=== PATIENT | male | born 1950 | race Caucasian/White ===

== ENCOUNTER 2022-05-30 05:28 | Inpatient (IN) ==
--- NOTE | 2022-05-04 09:55 | PAT Medication Instructions ---
Medication Instructions Date of Service May 04, 2022 Home Medications aspirin 81 mg capsule 81 mg PO QAM atenolol 100 mg tablet 100 mg PO QAM chlorthalidone 25 mg tablet 25 mg PO QAM clopidogrel 75 mg tablet 75 mg PO QAM dorzolamide 2 % eye drops 1 drp OPHTHALMIC (EYE) TID doxazosin 2 mg tablet 4 mg PO HS dulaglutide 1.5 mg/0.5 mL subcutaneous pen injector (Trulicity) 1.5 mg SUBCUT WK gabapentin 100 mg tablet 100 mg PO TID glipizide 5 mg tablet 10 mg PO BID isosorbide mononitrate 120 mg tablet,extended release 24 hr 120 mg PO QAM latanoprost 0.005 % eye drops 1 drp OPHTHALMIC (EYE) HS lisinopril 20 mg tablet 20 mg PO QAM meloxicam 15 mg tablet 15 mg PO QAM metformin 1,000 mg tablet 1,000 mg PO BID ktgnaups-qnq-dakcy acid 300 mcg-lycopene 600 mcg-lutein 300 mcg tablet (Centrum Silver Men) 1 tab PO QAM omega-3 fatty acids-vitamin E 1,000 mg capsule 2 cap PO QAM pantoprazole 40 mg tablet,delayed release 40 mg PO QAM potassium chloride 20 mEq tablet,extended release 40 meq PO BID rosuvastatin 20 mg tablet 20 mg PO QAM secukinumab 150 mg/mL subcutaneous pen injector (Cosentyx Pen) 150 mg SUBCUT MONTHLY tamsulosin 0.4 mg capsule 0.4 mg PO QAM trazodone 150 mg tablet,extended release 24 hr 150 mg PO HS Continue as directed dulaglutide 1.5 mg/0.5 mL subcutaneous pen injector (Trulicity) 1.5 mg SUBCUT WK ASK your surgeon for instructions meloxicam 15 mg tablet 15 mg PO QAM ASK your prescriber and surgeon aspirin 81 mg capsule 81 mg PO QAM clopidogrel 75 mg tablet 75 mg PO QAM secukinumab 150 mg/mL subcutaneous pen injector (Cosentyx Pen) 150 mg SUBCUT MONTHLY STOP taking 2 weeks before surgery omega-3 fatty acids-vitamin E 1,000 mg capsule 2 cap PO QAM DO NOT take the morning of surgery chlorthalidone 25 mg tablet 25 mg PO QAM glipizide 5 mg tablet 10 mg PO BID lisinopril 20 mg tablet 20 mg PO QAM metformin 1,000 mg tablet 1,000 mg PO BID xaahpyuc-few-qvezb acid 300 mcg-lycopene 600 mcg-lutein 300 mcg tablet (Centrum Silver Men) 1 tab PO QAM potassium chloride 20 mEq tablet,extended release 40 meq PO BID Take morning of surgery With a small sip of water, OTHERWISE NOTHING TO EAT OR DRINK AFTER MIDNIGHT: atenolol 100 mg tablet 100 mg PO QAM dorzolamide 2 % eye drops 1 drp OPHTHALMIC (EYE) TID gabapentin 100 mg tablet 100 mg PO TID isosorbide mononitrate 120 mg tablet,extended release 24 hr 120 mg PO QAM pantoprazole 40 mg tablet,delayed release 40 mg PO QAM rosuvastatin 20 mg tablet 20 mg PO QAM tamsulosin 0.4 mg capsule 0.4 mg PO QAM Take evening before surgery dorzolamide 2 % eye drops 1 drp OPHTHALMIC (EYE) TID doxazosin 2 mg tablet 4 mg PO HS gabapentin 100 mg tablet 100 mg PO TID glipizide 5 mg tablet 10 mg PO BID latanoprost 0.005 % eye drops 1 drp OPHTHALMIC (EYE) HS metformin 1,000 mg tablet 1,000 mg PO BID potassium chloride 20 mEq tablet,extended release 40 meq PO BID trazodone 150 mg tablet,extended release 24 hr 150 mg PO HS Other Notes If you have any questions please call us at [phone] or [phone] or [phone] or [phone]
--- NOTE | 2022-05-08 13:45 | Anesthesiology Consultation ---
Date of Service May 08, 2022 Assessment & Plan (1) Encounter for pre-operative examination: - check BSG am DOS. - cardiology clearance 05/02/22: "..low to moderate risk..." Unable to obtain most recent cardio note which is unsigned and office advised provider is com pleting procedures today. - PCP f/u 03/28/22: "...slurred speech and headache, CT head showed right internal carotid stenosis. MRI done yesterday showed acute/subacute ischemia left thalamus...most all symptoms resolved...severe right internal carotid stenosis..." - Case discussed with Dr. Salter who advised pt is acceptable risk to proceed including regarding pre-op CXR. - COVID screening: Per assessment on 05/08/2022: Travel screen negative, no known COVID-19 positive contacts or current COVID-19 related symptoms in past 2 weeks. Pt vaccinated. pre-op COVID test obtained today at [facility] appt. Chart Review Chart Review: Acceptable Risk for Surgery and Patient seen in Pre Admission Testing Teaching & Discussion Pre-Anesthesia Teaching/Discussion Notes: Instructed NPO after midnight before surgery, except medications with 15 cc of water. Medication instructions prov ided according to the [facility] guidelines. History Surgery Operation Date: 05/10/22 08:50 Proposed Procedures p Right Carotid Endarterectomy - Albaro Collins MD Height/Weight Height: 5 ft 8 in Weight: 136.3 kg Allergies Allergy/AdvReac Type Severity Reaction Status Date / Time No Known Allergies Allergy Verified 05/03/22 13:12 Medications Home Medications Medication Instructions Recorded Confirmed Last Taken aspirin 81 mg capsule 81 mg PO QAM 05/03/22 05/03/22 Unknown atenolol 100 mg tablet 100 mg PO QAM 05/03/22 05/03/22 Unknown chlorthalidone 25 mg tablet 25 mg PO QAM 05/03/22 05/03/22 Unknown clopidogrel 75 mg tablet 75 mg PO QAM 05/03/22 05/03/22 Unknown dorzolamide 2 % eye drops 1 drp OPHTHALMIC (EYE) TID 05/03/22 05/03/22 Unknown doxazosin 2 mg tablet 4 mg PO HS 05/03/22 05/03/22 Unknown dulaglutide 1.5 mg/0.5 mL 1.5 mg SUBCUT WK 05/03/22 05/03/22 Unknown subcutaneous pen injector (Trulicity) gabapentin 100 mg tablet 100 mg PO TID 05/03/22 05/03/22 Unknown glipizide 5 mg tablet 10 mg PO BID 05/03/22 05/03/22 Unknown isosorbide mononitrate 120 mg 120 mg PO QAM 05/03/22 05/03/22 Unknown tablet,extended release 24 hr latanoprost 0.005 % eye drops 1 drp OPHTHALMIC (EYE) 05/03/22 05/03/22 Unknown lisinopril 20 mg tablet 20 mg PO QAM 05/03/22 05/03/22 Unknown meloxicam 15 mg tablet 15 mg PO QAM 05/03/22 05/03/22 Unknown metformin 1,000 mg tablet 1,000 mg PO BID 05/03/22 05/03/22 Unknown lpygsdhn-bnh-wugdv acid 300 1 tab PO QAM 05/03/22 05/03/22 Unknown mcg-lycopene 600 mcg-lutein 300 mcg tablet (Centrum Silver Men) omega-3 fatty acids-vitamin E 2 cap PO QAM 05/03/22 05/03/22 Unknown 1,000 mg capsule pantoprazole 40 mg tablet,delayed 40 mg PO QAM 05/03/22 05/03/22 Unknown release potassium chloride 20 mEq 40 meq PO BID 05/03/22 05/03/22 Unknown tablet,extended release rosuvastatin 20 mg tablet 20 mg PO QAM 05/03/22 05/03/22 Unknown secukinumab 150 mg/mL subcutaneous 150 mg SUBCUT MONTHLY 05/03/22 05/03/22 Unknown pen injector (Cosentyx Pen) tamsulosin 0.4 mg capsule 0.4 mg PO QAM 05/03/22 05/03/22 Unknown trazodone 150 mg tablet,extended 150 mg PO HS 05/03/22 05/03/22 Unknown release 24 hr Past Medical History Medical History (Updated 05/08/22 @ 14:24 by Lindsay Montoya PA-C) CAD (coronary artery disease) s/p ALIYAH stent to proximal Cx 06/2019, per cath report also s/p stenting to LAD Carotid artery disease Diabetes mellitus, type 2 IDDM History of stroke approx 3 weeks ago - went to [facility] - stayed overnight - followed up with Dr. Collins Hyperlipidemia Hypertension controlled, stable per pt Imbalance ongoing x 1 yr per pt Psoriasis Sleep apnea cpap-compliant Patient denies h/o seizures, heart attack, heart failure, blood clots or blood transfusions. Exercise / Class Metabolic Activity III < 4 Walking/Shop/Light housework (denies CP or SOB with usual activities, ambulates with cane) Past Family History Family History Other No pertinent family history Past Surgical History Surgical History History of appendectomy History of arthroscopy of right shoulder History of colonoscopy History of lumbar laminectomy for spinal cord decompression Hx of cardiac cath 07/09/19: PH [facility] - widely patent LAD stent with otherwise mild disease, PCI/stenting ALIYAH to proximal Cx, mild RCA disease - follows Dr. Jerez Hx of heart artery stent 07/09/19: PH [place] - widely patent LAD stent with otherwise mild disease, PCI/stenting ALIYAH to proximal Cx, mild RCA disease - follows Dr. Jerez Hx of spinal fusion Hx of tonsillectomy Hx of wisdom tooth extraction Past Anesthesia History No Hx of Anesthesia Complications and No Family Hx of Anesthesia Complications History of PONV No Hx of PONV and No Hx of Motion Sickness Social History Smoking Status: Former smoker Do You Dip or Chew Tobacco: No Smoking End Date: quit more than 30 years ago Hx Alcohol Use: No Hx Substance Use: No substance use type: does not use Review of Systems Occasional cough with mucus/phlegm ongoing x 1 yr with seasonal allergies per pt. Patient denies chest pain, shortness of breath, dyspnea on exertion, fever, chills, cough, wheezing, or palpitations. Physical Exam Vital Signs Vitals BP 132/68 P 70 TEMP 98.9 SP02 97% on RA RESP 17 Physical TMD 3.5 finger breaths Mallampati Score 3 Dentition: intact, several missing teeth; denies chipped or loose teeth, implants or bridges, caps/crowns Lungs: normal respiratory effort. Clear throughout to auscultation, no adventitious breath sounds Cardiac: regular rate and rhythm, no murmurs noted Lab Results Anesthesia Preop Results Results Anesthesia Widget: WBC 4.72 K/uL (4.8-10.8) L 05/08/22 Hgb 13.5 g/dL (14.0-18.0) L 05/08/22 Hct 41.4 % (42-52) L 05/08/22 Plt 116 K/uL (130-400) L 05/08/22 Na 141 mmol/L (136-145) 05/08/22 K 4.1 mmol/L (3.5-5.1) 05/08/22 Cl 105 mmol/L (98-107) 05/08/22 CO2 29 mmol/L (21-32) 05/08/22 BUN 24 mg/dl (6-23) H 05/08/22 Creat 1.30 mg/dl (0.6-1.4) 05/08/22 Glucose Level 202 mg/dl (70-99(Fasting)) H 05/08/22 PT 10.6 Seconds (9.0-12.0) 05/08/22 INR 1.0 (0.9-1.1) 05/08/22 HA1c 6.5 % (4.5-5.6) H 05/08/22 Blood Type O Positive 05/08/22 Antibody Screen NEGATIVE 05/08/22 Testing Electrocardiogram Date: 05/08/22 Sinus rhythm with 1st degree AV block, rate 71 bpm Poor R wave progression, consider anterior OH vs lead placement vs LVH Chest X-Ray Date: 05/08/22 Cardiac silhouette is enlarged. There is no pneumothorax, or overt pulmonary edema. Trace pleural effusions with mild bibasilar densities. Degenerative changes of the shoulders and spine. IMPRESSION: 1. Cardiomegaly without overt pulmonary edema. 2. Trace pleural effusions with mild bibasilar opacities, likely atelectatic. Echocardiogram Date: 03/27/22 EF 60% LA moderately dilated RV mildly dilated R cusp of aortic valve moderately thickened, mildly calcified and restricted No significant valvular dysfunction Stress Test Date: 03/06/18 Pharmacologic MPHR not listed Negative for myocardial ischemia on ECG, nuclear images not available Cardiac Catheterization Date: 07/09/19 Left main: angiographically normal LAD: mid disease 40% proximal to previously placed stent, mid stent is widely patent. Otherwise mild luminal irregularities Cx: proximal 80% disease s/p PCI and stenting RCA: 30% proximal disease, mild luminal irregularities Other Testing MRI brain 03/27/22 Focal acute/subacute ischemic change is present in the left thalamus. Neck CTA 03/26/22 Severe narrowing R ICA, soft and calcified plaque Less than 50% stenosis L ICA
--- NOTE | 2022-05-29 15:53 | History & Physical Report ---
Date of Service May 29, 2022 History of Present Illness Primary Care Provider: Margaret Mahoney MD Name: TRINIDAD SHERIFF Patient Number: [id number] : 1950 Date of Service: 05/01/2022 Chief Complaint: _New patient consultation for carotid stenosis HPI: _Mr. Sheriff is an elderly male who presents to Dr. Collins's vascular surgery clinic today as a new patient visit for carotid stenosis. Patient recently was admitted to [facility] for a left hemispheric CVA on 03/26/2022. During that hospital stay he had symptoms of confusion, slurred speech, and possibly some balance problems, which resolved within about 24 ho urs. He has not have recurrence of symptoms nor has he had any similar symptoms previous to this. Imaging demonstrated a left thalamic CVA. CTA of the neck demonstrated less than 50% stenosis of his left ICA, and 70 to 99% stenosis in his right. Patient denies any history of myocardial infarction, but does state that he had 2 cardiac catheterizations with stent placement about 6 years ago. He follows with Dr. Sreekanth Jerez. He was started on Plavix during that hospital stay as well. Patient does use a cane for ambulation. Patient denies other complaints at this time including headache, fever, chills, chest pain, shortness of breath, abdominal pain, nausea, vomiting, rest pain, claudication, nonhealing wounds or ulcers, other concerns. Review of systems: Total of 14 systems were reviewed and are negative aside from what is related in his HPI Imaging: Patient underwent a CTA evaluation at [facility], and brought a disc to the office for Dr. Collins's review. This demonstrates 95% stenosis of his right ICA and less than 50% stenosis in the left. Current Home Meds: (Last Updated 05/01 13:31) aspirin (aspirin 81 mg oral tablet) 81 mg PO Daily atenolol (atenolol 100 mg oral tablet) 100 mg PO bid betamethasone topical (betamethasone dipropionate 0.05% topical ointment) 1 appl topical bid to groin. chlorthalidone (chlorthalidone 25 mg oral tablet) 25 mg PO Daily clopidogrel (clopidogrel 75 mg oral tablet) 75 mg PO Daily cyanocobalamin (Vitamin B12) dorzolamide-timolol ophthalmic (dorzolamide-timolol 2.23%-0.68% ophthalmic solution) 1 drop both eyes bid doxazosin (doxazosin 2 mg oral tablet) 2 mg PO Daily dulaglutide (Trulicity Pen 1.5 mg/0.5 mL subcutaneous solution) folic acid gabapentin (gabapentin 100 mg oral capsule) 100 mg PO tid glipiZIDE (glipiZIDE 5 mg oral tablet) 10 mg PO bid isosorbide mononitrate (isosorbide mononitrate 120 mg oral tablet, extended release) 120 mg PO qAM IMDUR (isosorbide mononitrate) is a SUSTAINED RELEASE tablet typically dosed daily. Do not confuse with ISORDIL (isosorbide dinitrate) commonly dosed three times daily. Gino Krause 05/01 13:24 latanoprost ophthalmic (latanoprost 0.005% ophthalmic solution) 1 drop left eye qhs Store intact bottles under refrigeration. Once opened, the container may be stored at room temperature for 6 weeks. Gino Krause 05/01 13:24 lisinopril (lisinopril 20 mg oral tablet) 20 mg PO Daily meloxicam (meloxicam 15 mg oral tablet) 15 mg PO Daily metFORMIN (metFORMIN 1000 mg oral tablet) 1,000 mg PO bid multivitamin (One-A-Day Essentials) 1 tab PO Daily nitroglycerin (nitroglycerin 0.4 mg sublingual tablet) omega-3 polyunsaturated fatty acids (Fish Oil oral capsule) pantoprazole (pantoprazole 40 mg oral delayed release tablet) 40 mg PO Daily potassium chloride (potassium chloride 20 mEq oral tablet, extended release) 2 tabs po bid rosuvastatin (rosuvastatin 20 mg oral tablet) 20 mg PO qhs secukinumab (Cosentyx) 300 mg subQ [id number] traZODone (traZODone 150 mg oral tablet) Allergies and Sensitivities: No Known Medication Allergies Past Medical History: Problems: Carotid stenosis Hypertension Diabetes Skin lesion Coronary artery disease Hyperlipidemia Diabetic neuropathy Obstructive sleep apnea GERD Psoriasis Surgical history: Positive for tonsillectomy, appendectomy cardiac catheterization with coronary artery stent placement x2 Family history: Positive for diabetes and hypertension Social history: Patient is and lives with his . He is a prior smoker having smoked 1 pack/week for about 2 years and quit in 1972. He denies any significant alcohol use. He denies any illicit drug use. OBJECTIVE Vitals: Last Updated 05/01/22 13:36 Date Temp BP Location Pulse RR SpO2 Pain 05/01/22 0 05/01/22 140/64 Right Arm 05/01/22 142/64 Left Arm 68 94 Vital Signs are the last 3 documented. No Orthostatic Data Available Height and Weight: Last Updated 05/01/22 13:33 Date BMI Wt(kg) Wt(lb) Method Ht(cm) (ft-in) Method 05/01/22 134.1 295 Standing Scale Heights and Weights are the last 3 documented. Physical Exam Constitutional: In general patient is morbidly obese but otherwise healthy well- nourished well-developed elderly male no distress. He is alert and oriented without any focal neurological deficits. His head is normocephalic and atraumatic. His carotids do demonstrate bruits. His heart is regular, his lungs are decreased but clear throughout. His abdomen is soft and nontender with normoactive bowel sounds in all 4 quadrants. I am unable to appreciate any pulsatile mass. Brachial and radial pulses are +3. Femoral pulses are +3. Lower extremity distal pulses are +2. He has brisk capillary refill and no sign of distal ischemia. He does have +2 edema of the lower extremities. ASSESSMENT: _ PLAN: _ 1 ) _severe right ICA stenosis Patient appears to have over 95% stenosis of his right ICA by CTA. This is asymptomatic at this time, however, due to the severity of the stenosis we recommend that he undergo a right carotid endarterectomy procedure. The procedure risks benefits and alternatives were discussed with the patient and his by Dr. Collins. Patient expresses understanding and agreement to proceed. Patient is advised to call any other questions or concerns. This will be scheduled in the next few weeks at the patient's convenience. We will request cardiac clearance from Dr. Jerez. Thank you for letting us participate in the care of this patient. Signature Line Electronic Signature on File CC: Sreekanth Jerez MD [address] [facility] [address] * CC: Margaret Mahoney MD [place] [id number] [facility], [address] [place] [address] * Electronically Reviewed/Signed by: Keshia Lopez PA-C Author Signature Dt/Tm:05/01/2022 04:31 PM [facility] [address] [place], [place]. [address] Electronically Reviewed/Signed by: Albaro Collins MD Cosigner Signature Dt/Tm: 05/04/2022 08:43 AM Clam Shucker [facility] [address], [address] [place] [address] LM Result Type: HVI Outpt Note Date of Service: May 01, 2022 16:19 EDT Authorization Status: Final Author or Import Date: MALAIKA Lopez, Keshia on May 01, 2022 16:31 EDT Verified By: MD Dennis, Albaro Oscar on May 04, 2022 08:43 EDT Encounter info: [id number], [facility], Clinic, 05/01/2022 - 05/01/2022 Allergies Allergy/AdvReac Type Severity Reaction Status Date / Time No Known Allergies Allergy Verified 05/03/22 13:12 Home Medications Medication Instructions Recorded Confirmed Type aspirin 81 mg capsule 81 mg PO QAM 05/03/22 05/03/22 History atenolol 100 mg tablet 100 mg PO QAM 05/03/22 05/03/22 History chlorthalidone 25 mg tablet 25 mg PO QAM 05/03/22 05/03/22 History clopidogrel 75 mg tablet 75 mg PO QAM 05/03/22 05/03/22 History dorzolamide 2 % eye drops 1 drp ophthalmic (eye) TID 05/03/22 05/03/22 History doxazosin 2 mg tablet 4 mg PO HS 05/03/22 05/03/22 History dulaglutide 1.5 mg/0.5 mL 1.5 mg subcut WK 05/03/22 05/03/22 History subcutaneous pen injector (Trulicity) gabapentin 100 mg tablet 100 mg PO TID 05/03/22 05/03/22 History glipizide 5 mg tablet 10 mg PO BID 05/03/22 05/03/22 History isosorbide mononitrate 120 mg 120 mg PO QAM 05/03/22 05/03/22 History tablet,extended release 24 hr latanoprost 0.005 % eye drops 1 drp ophthalmic (eye) HS 05/03/22 05/03/22 History lisinopril 20 mg tablet 20 mg PO QAM 05/03/22 05/03/22 History meloxicam 15 mg tablet 15 mg PO QAM 05/03/22 05/03/22 History metformin 1,000 mg tablet 1,000 mg PO BID 05/03/22 05/03/22 History rawvawfp-ovm-mdvyt acid 300 1 tab PO QAM 05/03/22 05/03/22 History mcg-lycopene 600 mcg-lutein 300 mcg tablet (Centrum Silver Men) omega-3 fatty acids-vitamin E 2 cap PO QAM 05/03/22 05/03/22 History 1,000 mg capsule pantoprazole 40 mg tablet,delayed 40 mg PO QAM 05/03/22 05/03/22 History release potassium chloride 20 mEq 40 meq PO BID 05/03/22 05/03/22 History tablet,extended release rosuvastatin 20 mg tablet 20 mg PO QAM 05/03/22 05/03/22 History secukinumab 150 mg/mL subcutaneous 150 mg subcut MONTHLY 05/03/22 05/03/22 History pen injector (Cosentyx Pen) tamsulosin 0.4 mg capsule 0.4 mg PO QAM 05/03/22 05/03/22 History trazodone 150 mg tablet,extended 150 mg PO HS 05/03/22 05/03/22 History release 24 hr Past Med/Surg History Medical History (Updated 05/08/22 @ 14:24 by Lindsay Montoya PA-C) CAD (coronary artery disease) s/p ALIYAH stent to proximal Cx 06/2019, per cath report also s/p stenting to LAD Carotid artery disease Diabetes mellitus, type 2 IDDM History of stroke approx 3 weeks ago - went to [place] - stayed overnight - followed up with Dr. Collins Hyperlipidemia Hypertension controlled, stable per pt Imbalance ongoing x 1 yr per pt Psoriasis Sleep apnea cpap-compliant Surgical History History of appendectomy History of arthroscopy of right shoulder History of colonoscopy History of lumbar laminectomy for spinal cord decompression Hx of cardiac cath 07/09/19: [place] - widely patent LAD stent with otherwise mild disease, PCI/stenting ALIYAH to proximal Cx, mild RCA disease - follows Dr. Jerez Hx of heart artery stent 07/09/19: PH [place] - widely patent LAD stent with otherwise mild disease, PCI/stenting ALIYAH to proximal Cx, mild RCA disease - follows Dr. Jerez Hx of spinal fusion Hx of tonsillectomy Hx of wisdom tooth extraction Family History Other No pertinent family history Social History Smoking Status: Former smoker Second Hand Exposure: No; Hx Alcohol Use: No Hx Substance Use: No Preferred Language: Japanese Communication Ability: Effective [employer] Required: No Beliefs That Will Affect Care: None Current Living Situation: Spouse and Family Current Living Situation Comment: and son Feels Safe at Home: Yes Assistive Devices: Cane
[~2022-05-30 05:28] MED LIST: CEFAZOLIN 1,000 MG/7.5 ML SYR IV SCH; SODIUM CHLORIDE 0.9% 1000ML 1,000 ML IV SCH
[2022-05-30] MEDS ORDERED: SODIUM CHLORIDE 0.9% 1000ML IV SCH (06:00)
[2022-05-30 06:42] LABS: Calcium 9.2 mg/dl (8.5-10.1); Creatinine Clr Calc Pharmacy 88.5 ml/min; Est GFR (African American) 82.6 ml/min; Est GFR (Non-African American) 71.3 ml/min; Potassium 4.2 mmol/L (3.5-5.1)
[2022-05-30] MEDS ORDERED: ROCURONIUM BROMIDE 10 MG/ML 5 ML VIAL IV ONE ×5 (06:49→11:25)
[2022-05-30] MEDS ORDERED: PROPOFOL IV EMULSION 10 MG/ML 20 ML VIAL IV ONE (06:49)
[2022-05-30] MEDS ORDERED: LIDOCAINE 2% MPF LOCAL 5 ML VIAL INFIL ONE (06:49)
[2022-05-30] MEDS ORDERED: ONDANSETRON INJ 2 MG/ML 2 ML VIAL ONE (06:49)
[2022-05-30] MEDS ORDERED: DEXAMETHASONE SOD INJ 4 MG/ML VIAL ONE (06:49)
[2022-05-30] MEDS ORDERED: fentaNYL citrate 100 MCG/2 ML VIAL ONE ×2 (06:49)
[2022-05-30] MEDS ORDERED: MIDAZOLAM HCL 1 MG/ML 2ML VIAL ONE (06:49)
[2022-05-30] MEDS ORDERED: ATROPINE SULFATE 0.1 MG/ML 10ML SYR IV PRN (06:59)
[2022-05-30] MEDS ORDERED: fentaNYL citrate 100 MCG/2 ML VIAL IV PRN (06:59)
[2022-05-30] MEDS ORDERED: ONDANSETRON INJ 2 MG/ML 2 ML VIAL IV PRN (06:59)
[2022-05-30] MEDS ORDERED: ePHEDrine sulfate 50 MG/ML AMP IV PRN (06:59)
[2022-05-30] MEDS ORDERED: SUGAMMADEX SODIUM 200 MG/2 ML VIAL IV ONE (07:17)
[2022-05-30] MEDS ORDERED: HEPARIN (PORCINE) 1000 UNIT/ML 10 ML (CATH LAB USE ONLY) ONE (07:18)
[2022-05-30] MEDS ORDERED: LIDOCAINE 1% LOCAL 20 ML VIAL ONE (07:19)
[2022-05-30] MEDS ORDERED: THROMBIN FOR SOLN 20000 UNIT KIT ONE (07:19)
[2022-05-30] MEDS ORDERED: ceFAZolin 330 MG/ML 1 GM VIAL ONE (07:19)
[2022-05-30] MEDS ORDERED: GELATIN SPONGE SZ 100 ONE (07:19)
[2022-05-30] MEDS ORDERED: BUPIVACAINE 0.5 % 5 MG/1 ML MPF 30ML VIAL ONE (07:20)
[2022-05-30] MEDS ORDERED: EPINEPHrine INJ 1 MG/ML AMP ONE (07:20)
[2022-05-30] MEDS ORDERED: NITROGLYCERIN 5 MG/ML 10 ML VIAL ONE (07:33)
[2022-05-30] MEDS ORDERED: HEPARIN SOD (PORCINE) 1000 UNIT/ML ONE (07:33)
--- NOTE | 2022-05-30 08:17 | History & Physical Bridge Note ---
Date of Service May 30, 2022 History & Physical Bridge Note I have examined the patient, reviewed the History & Physical and in the interval since the performance of the History & Physical I have noted the following changes of clinical significance: no changes noted
--- NOTE | 2022-05-30 11:26 | Operative Report ---
Post Operative Report Pre & Post Diagnosis Operation Date: 05/10/22 07:30 <No data on this case meets the specified criteria> Operation Date: 05/30/22 08:00 Pre-Op Diagnosis: Right internal carotid artery stenosis with CVA Post-Op Diagnosis: Right carotid artery stenosis and CVA I identified the patient and participated in the time-out.: Yes Procedure Operation Date: 05/10/22 07:30 <No data on this case meets the specified criteria> Operation Date: 05/30/22 08:00 Actual Procedures p Right Carotid Endarterectomy with bovine patch(Right) - Albaro Collins MD Surgeon Albaro Collins MD Terrazzo Mechanic Bobby,PAC Estimated Blood Loss 80 Findings Consistent with Post-Op Diagnosis Specimens plaque right carotid Anesthesia Type General Complications none Disposition Accompanied Patient To Recovery: No Disposition: Recovery Room Indications This is a 71-year-old gentleman who had a CVA. He was found to have a significant stenosis of his right internal carotid artery with ulceration. Carotid endarterectomy was recommended. I have discussed the risks options and benefits of the procedure with the patient. The patient understands the risks options and benefits and agrees to the procedure. Description of Procedure The patient was taken to the operating room and placed in supine position. After general anesthesia was accomplished the right side of the neck was prepped and draped in a sterile manner. The patient was identified and a timeout performed. A longitudinal neck incision was then made coursing along the medial border of the sternocleidomastoid muscle. The incision was taken down through the platysmal layer. The facial vein was identified, ligated, and divided. The common carotid artery was then seen. It was dissected free down to the omohyoid muscle. The dissection was carried upward until the external carotid artery and superior thyroid artery was seen. The superior thyroid artery was slung with a 2-0 silk suture. The external carotid was slung with a red rubber vessel loop. Next the dissection was carried up along the internal carotid artery. This was carried upward to beyond the area of narrowing. The hypoglossal nerve was seen and preserved. The ansa actually coursed over the top of the common carotid artery from lateral to medial and was preserved during the case. The patient was heparinized. After adequate heparinization was accomplished, the internal, external, and common carotid arteries were clamped. A longitudinal arteriotomy was started on the common carotid artery and extended upward along the internal carotid artery to a point beyond the area of narrowing. There was calcified plaque of the internal carotid artery origin causing approximately 80% narrowing with a large posterior ulceration and subacute hemorrhagic plaque.. A Sundt shunt was then placed in the internal, followed by the common carotid artery and held in place with Jayce clamps. There was good back bleeding seen from the internal carotid artery. The endarterectomy was then started in the appropriate plane on the common carotid artery. This was carried upward and the external carotid was everted and endarterectomized. The endarterectomy was then carried up along the internal carotid artery till a nice feathering breakoff point was accomplished beyond the end of the plaque. There were 2 tacking stitches placed at the distal breakoff point. The endarterectomy was then carried down further on the common carotid artery. At end of the arteriotomy, the plaque was then transected. Under loop magnification, all loose debris and flaps werer removed. There is no distal flap seen at the end of the endarterectomy site. The arteriotomy then closed using a bovine patch and a running 6-0 Prolene suture. This was done in the usual vascular fashion. Prior to completing the closure, the Sundt shunt was removed and the internal and common carotid arteries were reclamped. Backbleeding and forward bleeding was allowed to occur. The flow surface was irrigated with heparinized saline. The final few sutures were then placed and securely tied. Clamps were then removed off the external and common carotid arteries. The clamp was then removed the internal carotid artery. Good distal flow was seen. Adequate hemostasis was seen of the patch. The wound was inspected and adequate hemostasis was obtained. The wound was irrigated with antibiotic solution. It was then closed with a running 3-0 Vicryl suture for the platysmal layer and a 4-0 subcuticular Vicryl suture for the skin edges. Dermabond was used for dressing. The patient left the operation room in satisfactory condition and tolerated the procedure well. All needle and sponge counts were correct at the end of the procedure. Keshia Lopez Pac assisted due to lack of resident availability and was necessary for prepping, draping, retraction, wound closure defects, subQ and skin closure and was necessary for the case. I attest to the content of the Intraoperative Record and any orders documented therein. Any exceptions are noted below.
[2022-05-30] MEDS ORDERED: ESMOLOL HCL INJ 10 MG/ML 10ML VIAL IV ONE (12:11)
--- NOTE | 2022-05-30 12:39 | Anesthesiology Progress Note ---
Date of Service May 30, 2022 Anesthesia Post Procedure Vital Signs Vital Signs: Temp Pulse Pulse Resp BP BP Pulse Ox 05/30/22 12:25 97.2 F L 88 18 161/64 H 99 05/30/22 12:15 87 16 166/64 H 99 05/30/22 12:05 87 18 166/63 H 95 05/30/22 11:57 97.0 F L 92 H 18 153/80 H 95 05/30/22 06:20 98.4 F 71 20 182/79 H 96 O2 Del Method O2 Flow Rate 05/30/22 12:25 Oxymask 5 05/30/22 12:15 Oxymask 5 05/30/22 12:05 Oxymask 5 05/30/22 11:57 Oxymask 5 05/30/22 06:20 Room Air Transfer of Care Handoff Completed per policy Notes Mental Status: alert / awake / arousable and participated in evaluation Patient Amnestic to Procedure: Yes Nausea / Vomiting: adequately controlled Pain: adequately controlled Airway Patency, RR, SpO2: stable & adequate BP & HR: stable & adequate Hydration State: stable & adequate Anesthetic Complications: no major complications apparent and Pt Satisfied with anesthetic care
[2022-05-30] MEDS ORDERED: MoRPHine SULFATE 4 MG/ML 1 ML CARP\\VIAL IV PRN (15:31)
[2022-05-30] MEDS ORDERED: oxyCODONE/ACETAMINOPHEN 5mg/325mg TAB PO PRN (15:31)
[2022-05-30] MEDS ORDERED: LACTATED RINGER'S 1,000 ML IV SCH (15:31)
[2022-05-30] MEDS ORDERED: SECUKINUMAB 150 MG/ML SQ SCH (15:31)
--- NOTE | 2022-05-30 17:02 | Critical Care Consultation ---
Date of Consultation May 30, 2022 Assessment & Plan (1) Status post carotid endarterectomy: (2) Hypertension: (3) History of coronary artery disease: Plan Continue usual post carotid endarterectomy ICU care. Home blood pressure medications have been ordered by the vascular surgeon. Defer blood pressure goals and parameters to the vascular surgery team. Defer pain control to the vascular surgery team. Patient's airway appears to be intact. ICU provider team is available should the need arise. Please call with questions. ICU provider team will continue to monitor the patient in the ICU until the patient is either downgraded or discharged. Discussed with bedside nurse. History of Present Illness Reason for Consultation: Post carotid endarterectomy ICU monitoring Attending Physician: Albaro Collins MD History of Present Illness Patient with a history of left CVA 03/26/2022 admitted to an outside hospital. Imaging demonstrated a left thalamic CVA. CTA of the neck demonstrated less than 50% stenosis of the left ICA and 70 to 99% stenosis in the right. He underwent a right carotid artery endarterectomy today. He has an arterial line in place. Systolic blood pressures have been elevated to the 180s. He is saturating in the low to mid 90s on room air. No significant complaints at this time. He just completed eating his dinner. He had no problems. He is eager to go home. Allergies Allergy/AdvReac Type Severity Reaction Status Date / Time No Known Allergies Allergy Verified 05/30/22 06:01 Home Medications Medication Instructions Recorded Confirmed Type aspirin 81 mg capsule 81 mg PO QAM 05/03/22 05/30/22 History atenolol 100 mg tablet 100 mg PO QAM 05/03/22 05/30/22 History chlorthalidone 25 mg tablet 25 mg PO QAM 05/03/22 05/30/22 History clopidogrel 75 mg tablet 75 mg PO QAM 05/03/22 05/30/22 History dorzolamide 2 % eye drops 1 drp ophthalmic (eye) TID 05/03/22 05/30/22 History doxazosin 2 mg tablet 4 mg PO HS 05/03/22 05/30/22 History dulaglutide 1.5 mg/0.5 mL 1.5 mg subcut WK 05/03/22 05/30/22 History subcutaneous pen injector (Trulicity) gabapentin 100 mg tablet 100 mg PO TID 05/03/22 05/30/22 History glipizide 5 mg tablet 10 mg PO BID 05/03/22 05/30/22 History isosorbide mononitrate 120 mg 120 mg PO QAM 05/03/22 05/30/22 History tablet,extended release 24 hr latanoprost 0.005 % eye drops 1 drp ophthalmic (eye) HS 05/03/22 05/30/22 History lisinopril 20 mg tablet 20 mg PO QAM 05/03/22 05/30/22 History meloxicam 15 mg tablet 15 mg PO QAM 05/03/22 05/30/22 History metformin 1,000 mg tablet 1,000 mg PO BID 05/03/22 05/30/22 History rpqhvwzy-oad-zyxcp acid 300 1 tab PO QAM 05/03/22 05/30/22 History mcg-lycopene 600 mcg-lutein 300 mcg tablet (Centrum Silver Men) omega-3 fatty acids-vitamin E 2 cap PO QAM 05/03/22 05/30/22 History 1,000 mg capsule pantoprazole 40 mg tablet,delayed 40 mg PO QAM 05/03/22 05/30/22 History release potassium chloride 20 mEq 40 meq PO BID 05/03/22 05/30/22 History tablet,extended release rosuvastatin 20 mg tablet 20 mg PO QAM 05/03/22 05/30/22 History secukinumab 150 mg/mL subcutaneous 150 mg subcut MONTHLY 05/03/22 05/30/22 History pen injector (Cosentyx Pen) tamsulosin 0.4 mg capsule 0.4 mg PO QA 05/03/22 05/30/22 History trazodone 150 mg tablet 150 mg PO HS 05/30/22 05/30/22 History Patient History Medical History (Updated 05/30/22 @ 16:59 by Grey Connelly MD) CAD (coronary artery disease) s/p ALIYAH stent to proximal Cx 06/2019, per cath report also s/p stenting to LAD Carotid artery disease Diabetes mellitus, type 2 IDDM History of coronary artery disease History of stroke approx 3 weeks ago - went to [facility] - stayed overnight - followed up with Dr. Collins Hyperlipidemia Hypertension controlled, stable per pt Hypertension Imbalance ongoing x 1 yr per pt Psoriasis Sleep apnea cpap-compliant Surgical History (Updated 05/30/22 @ 16:59 by Grey Connelly MD) History of appendectomy History of arthroscopy of right shoulder History of colonoscopy History of lumbar laminectomy for spinal cord decompression Hx of cardiac cath 07/09/19: [facility] Ad[facility] - widely patent LAD stent with otherwise mild disease, PCI/stenting ALIYAH to proximal Cx, mild RCA disease - follows Dr. Jerez Hx of heart artery stent 07/09/19: PH Adela - widely patent LAD stent with otherwise mild disease, PCI/stenting ALIYAH to proximal Cx, mild RCA disease - follows Dr. Jerez Hx of spinal fusion Hx of tonsillectomy Hx of wisdom tooth extraction Status post carotid endarterectomy Family History Other No pertinent family history Social History Smoking Status: Former smoker Smoking End Date: quit more than 30 years ago; Second Hand Exposure: No; Do You Dip or Chew Tobacco: No; Tobacco Cessation Education Requested by Patient: No Hx Alcohol Use: No Hx Substance Use: No Preferred Language: Khmer Communication Ability: Effective Fireproof Door Maker Required: No Beliefs That Will Affect Care: None Current Living Situation: Spouse and Family Current Living Situation Comment: and son Other Information That Helps Us Care for You: No Feels Safe at Home: Yes Safety Concerns: Feels Safe At This Time Assistive Devices: Cane and Oxygen - at Night Review of Systems Review of Systems: All systems reviewed & are unremarkable except as noted in HPI & below Physical Exam Physical Exam: Constitutional: Obese appearing male no apparent distress. Eyes: Pupils are equal round and reactive to light. Conjunctivae are normal. Anicteric sclera. Ears nose, mouth and throat: Deferred. Neck: Incision on the right side of neck noted. No bleeding. Respiratory: Clear to auscultation bilaterally. No use of accessory muscles. No significant clubbing noted. Cardiovascular: Regular rate and rhythm. No murmurs. No edema. Gastrointestinal: Normal bowel sounds, soft, nontender and nondistended. No hepatosplenomegaly noted. Musculoskeletal: No cyanosis. Patient is able to move all extremities. Skin: No rashes, warm dry and intact. Neurologic: No obvious focal neurological deficits seen. Psychiatric: Alert and oriented x3 with a euthymic affect. Results & Data Results & Data ([facility]) Vital Signs (Past 12 Hours) Vital Signs Temp Pulse Pulse Resp BP BP Pulse Ox 05/30/22 16:00 36.9 C 05/30/22 12:56 05/30/22 12:56 36.9 C 90 15 157/62 H 148/74 H 93 05/30/22 12:25 36.2 C L 88 18 161/64 H 99 05/30/22 12:15 87 16 166/64 H 99 05/30/22 12:05 87 18 166/63 H 95 05/30/22 11:57 36.1 C L 92 H 18 153/80 H 95 05/30/22 06:20 36.9 C 71 20 182/79 H 96 O2 Del Method O2 Flow Rate 05/30/22 16:00 05/30/22 12:56 Oxymask 3 05/30/22 12:56 Oxymask 3 05/30/22 12:25 Oxymask 5 05/30/22 12:15 Oxymask 5 05/30/22 12:05 Oxymask 5 05/30/22 11:57 Oxymask 5 05/30/22 06:20 Room Air Coding Level of Care Code 13424 Inpt Consult Level 3 Diagnoses Status post carotid endarterectomy Z98.890 Hypertension I10 History of coronary artery disease Z86.79
[2022-05-30] MEDS: DORZOLAMIDE HCL 2% OPH SOLN 10 ML BTL OP SCH ×2 (17:14→20:52)
[2022-05-30] MEDS: ceFAZolin 2000MG 2,000 MG/15 ML SYR IV SCH (17:14)
[2022-05-30] MEDS: metFORMIN HCL 500 MG TAB PO SCH (17:16)
[2022-05-30] MEDS: glipiZIDE 5 MG TAB PO SCH (17:16)
[2022-05-30] MEDS: GABAPENTIN 100 MG CAP PO SCH ×2 (17:23→20:52)
[2022-05-30] MEDS: POTASSIUM CHLORIDE CRTAB 20 MEQ TABCR PO SCH (20:55)
[2022-05-30] MEDS ORDERED: traZODone HCL 100 MG TAB PO SCH (21:00)
[2022-05-30] MEDS ORDERED: LATANOPROST 0.005% OP SOLN 2.5 ML BTL OP SCH (21:00)
[2022-05-30] MEDS ORDERED: DOXAZosin MESYLATE 4 MG TAB PO SCH (21:00)
[2022-05-31] MEDS: ceFAZolin 2000MG 2,000 MG/15 ML SYR IV SCH (00:54)
[2022-05-31 06:44] LABS: Basophils # (auto) 0.01 K/uL (0-0.2); Basophils % (auto) 0.1 %; Eosinophils # (auto) 0.02 K/uL (0-0.50); Eosinophils % (auto) 0.2 %; Hematocrit (blood only) 39.3 % (40.1-51.0); Immature Granulocytes # (auto) 0.02 K/uL (0.00-0.02); Immature Granulocytes % (auto) 0.2 %; Lymphocytes # (auto) 1.07 K/uL (1.2-3.4); Lymphocytes % (auto) 13.2 %; Mean Corpuscular Hemoglobin 30.4 pg (25.0-34.0); Mean Corpuscular Hgb Conc 33.1 g/dL (32.0-36.0); Mean Platelet Volume 9.7 fL (9.4-12.4); Monocytes # (auto) 0.82 K/uL (0.24-0.82); Monocytes % (auto) 10.1 %; Neutrophils # (auto) 6.19 K/uL (1.4-6.5); Neutrophils % (auto) 76.2 %; Platelet Count 123 K/uL (130-400); RDW Coefficient of Variation 14.2 % (11.5-14.5); RDW Standard Deviation 47.6 fL (36.4-46.3); Red Blood Count 4.27 M/uL (4.63-6.08); White Blood Count 8.13 K/ul (4.8-10.8)
--- NOTE | 2022-05-31 07:38 | Critical Care Progress Note ---
Date of Service May 31, 2022 Assessment & Plan (1) Status post carotid endarterectomy: (2) Hypertension: (3) History of coronary artery disease: Plan Continue usual post carotid endarterectomy ICU care. Home blood pressure medications have been ordered by the vascular surgeon. Defer blood pressure goals and parameters to the vascular surgery team. Defer pain control to the vascular surgery team. Patient's airway appears to be intact. Can likely be discharged home today. ICU provider team is available should the need arise. Please call with questions. ICU provider team will continue to monitor the patient in the ICU until the patient is either downgraded or discharged. Discussed with bedside nurse. Admission and Anticipated Discharge Date Admission Date: May 30, 2022 Subjective No significant issues over the course the night. Patient eagerly waiting to go home. He ate half of his breakfast. He denies any numbness or tingling in his face or neck. Pain is minimal. Left radial arterial line in place. Continues to have episodes of periodic hypertension which is chronic for him. Denies chest pain, dizziness or shortness of breath. He uses CPAP overnight. Review of Systems Review of Systems: All systems reviewed & are unremarkable except as noted in HPI & below Physical Exam Physical Exam: Constitutional: Obese appearing male in no apparent distress. Eyes: Pupils are equal round and reactive to light. Conjunctivae are normal. Anicteric sclera. Ears nose, mouth and throat: Deferred. Neck: Incision on the right side of neck noted. No bleeding. Respiratory: Clear to auscultation bilaterally. No use of accessory muscles. No significant clubbing noted. Cardiovascular: Regular rate and rhythm. No murmurs. No edema. Gastrointestinal: Normal bowel sounds, soft, nontender and nondistended. No hepatosplenomegaly noted. Musculoskeletal: No cyanosis. Patient is able to move all extremities. Skin: No rashes, warm dry and intact. Incision site on the right neck appears to be intact with some mild swelling. Neurologic: No obvious focal neurological deficits seen. Psychiatric: Alert and oriented x3 with a euthymic affect. Results & Data Results & Data ([facility]) Vital Signs (Past 12 Hours) Vital Signs Temp Pulse Resp BP Pulse Ox O2 Del Method 05/31/22 06:02 142/66 H 05/31/22 06:02 36.8 C 71 15 95 05/31/22 05:00 88 17 95 05/31/22 04:00 75 14 93 05/31/22 04:00 36.7 C 139/74 05/31/22 03:00 75 12 94 05/31/22 03:00 132/63 05/31/22 02:00 75 14 94 05/31/22 02:00 145/69 H 05/31/22 01:00 74 15 94 05/31/22 01:00 127/62 05/31/22 00:00 72 8 L 93 05/31/22 00:00 125/64 05/30/22 23:00 84 13 94 05/30/22 23:00 123/66 05/30/22 23:13 83 05/30/22 22:00 97 H 17 90 05/30/22 22:00 159/81 H 05/30/22 21:00 97 H 21 89 L 05/30/22 21:00 159/80 H 05/30/22 20:01 97 H 15 90 05/30/22 20:01 141/85 H 05/30/22 20:00 94 H 15 93 05/30/22 19:52 Room Air Coding Level of Care Code 71281 Subseq Hosp Care Lvl 2 Diagnoses Status post carotid endarterectomy Z98.890 Hypertension I10 History of coronary artery disease Z86.79
[2022-05-31] MEDS: metFORMIN HCL 500 MG TAB PO SCH (08:45)
[2022-05-31] MEDS: glipiZIDE 5 MG TAB PO SCH (08:45)
[2022-05-31] MEDS: GABAPENTIN 100 MG CAP PO SCH ×2 (08:47→14:12)
[2022-05-31] MEDS: DORZOLAMIDE HCL 2% OPH SOLN 10 ML BTL OP SCH ×2 (08:48→14:12)
[2022-05-31] MEDS: POTASSIUM CHLORIDE CRTAB 20 MEQ TABCR PO SCH (08:48)
[2022-05-31] MEDS ORDERED: lisinopril 20 MG TAB PO SCH (09:00)
[2022-05-31] MEDS ORDERED: MELOXICAM 7.5 MG TAB PO SCH (09:00)
[2022-05-31] MEDS ORDERED: ASPIRIN 81 MG ECTAB PO SCH (09:00)
[2022-05-31] MEDS ORDERED: ATENOLOL 50 MG TABLET PO SCH (09:00)
[2022-05-31] MEDS ORDERED: CHLORTHALIDONE 25 MG TAB PO SCH (09:00)
[2022-05-31] MEDS ORDERED: TAMSULOSIN HCL 0.4 MG CAP PO SCH (09:00)
[2022-05-31] MEDS ORDERED: ROSUVASTATIN CALCIUM 20 MG TAB PO SCH (09:00)
[2022-05-31] MEDS ORDERED: CEROVITE ADV FORMULA TAB PO SCH (09:00)
[2022-05-31] MEDS ORDERED: PANTOprazole 40 MG TAB PO SCH (09:00)
[2022-05-31] MEDS ORDERED: CLOPIDOGREL BISULFATE 75 MG TAB PO SCH (09:00)
[2022-05-31] MEDS ORDERED: NON-FORMULARY MEDICATION (Omega-3 Fatty Acids-Vitamin E 1,000 mg Capsule) PO SCH (09:00)
[2022-05-31] MEDS ORDERED: ISOSORBIDE MONO EXTENDED REL 60 MG TABCR PO SCH (09:00)
--- NOTE | 2022-05-31 12:24 | Surgery Progress Note ---
Date of Service May 31, 2022 Assessment & Plan Admission and Anticipated Discharge Date Admission Date: May 30, 2022 Subjective Date of Service May 31, 2022 Assessment & Plan (1) S/P carotid endarterectomy: Plan: patient doing well post op without any problems. Will D/C today. Subjective Patient without complaint except for a sore throat. Eating and swallowing without difficulty. Denies focal deficits. Denies speech changes. Physical Exam Constitutional: WD/WN, vitals as above Neck: trachea midline Respiratory: normal respiratory effort; no respiratory distress Cardiovascular: Rate/Rhythm: regular rate and regular rhythm Skin: + incision (dry, clean with mild ecchymo sis) Neurologic: normal touch/pain/proprioception, CN's II-XI intact bilaterally and moves all extremities Psychiatric: Orientation: alert and oriented x 3 Results & Data ([facility]) Vital Signs (Past 12 Hours) Vital Signs Temp Pulse Resp BP BP Pulse Ox O2 Del Method 05/31/22 10:27 36.5 C 71 18 153/97 H 127/78 99 Room Air 05/31/22 10:27 Room Air Signed By: <Electronically signed by Albaro Collins MD> 05/31/22 1151 Created:05/31/22 1149 The status of this report isSigned. Draft = Not yet reviewed or approved by Medical Physician. Signed = Reviewed and approved by Medical Physician. Results & Data ([facility]) Vital Signs (Past 12 Hours) Vital Signs Temp Pulse Resp BP Pulse Ox O2 Del Method 05/31/22 12:00 76 24 91 05/31/22 11:00 73 21 93 05/31/22 11:00 126/61 05/31/22 10:00 81 16 91 05/31/22 10:00 154/87 H 05/31/22 08:00 Room Air 05/31/22 08:00 79 05/31/22 08:00 Room Air 05/31/22 09:00 79 17 90 05/31/22 09:00 149/64 H 05/31/22 08:01 134/66 05/31/22 08:01 79 20 95 05/31/22 08:00 82 16 93 05/31/22 08:36 36.8 C 05/31/22 07:20 149/77 H 05/31/22 07:20 79 15 90 05/31/22 07:01 148/61 H 05/31/22 07:01 77 17 91 05/31/22 07:00 80 22 93 05/31/22 06:02 142/66 H 05/31/22 06:02 36.8 C 71 15 95 05/31/22 05:00 88 17 95 05/31/22 04:00 75 14 93 05/31/22 04:00 36.7 C 139/74 05/31/22 03:00 75 12 94 05/31/22 03:00 132/63 05/31/22 02:00 75 14 94 05/31/22 02:00 145/69 H 05/31/22 01:00 74 15 94 05/31/22 01:00 127/62
--- NOTE | 2022-06-02 08:20 | Discharge Summary ---
Date of Service June 02, 2022 Admission HPI Per Admitting Provider Name: TRINIDAD SHERIFF Patient Number: [id number] : 1950 Date of Service: 05/01/2022 Chief Complaint: _New patient consultation for carotid stenosis HPI: _Mr. Sheriff is an elderly male who presents to Dr. Collins's vascular surgery clinic today as a new patient visit for carotid stenosis. Patient recently was admitted to [facility] for a left hemispheric CVA on 03/26/2022. During that hospital stay he had symptoms of confusion, slurred speech, and possibly some balance problems, which resolved within about 24 hours. He has not have recurrence of symptoms nor has he had any similar symptoms previous to this. Imaging demonstrated a left thalamic CVA. CTA of the neck demonstrated less than 50% stenosis of his left ICA, and 70 to 99% stenosis in his right. Patient denies any history of myocardial infarction, but does state that he had 2 cardiac catheterizations with stent placement about 6 years ago. He follows with Dr. Sreekanth Jerez. He was started on Plavix during that hospital stay as well. Patient does use a cane for ambulation. Patient denies other complaints at this time including headache, fever, chills, chest pain, shortness of breath, abdominal pain, nausea, vomiting, rest pain, claudication, nonhealing wounds or ulcers, other concerns. Review of systems: Total of 14 systems were reviewed and are negative aside from what is related in his HPI Imaging: Patient underwent a CTA evaluation at [facility], and brought a disc to the office for Dr. Collins's review. This demonstrates 95% stenosis of his right ICA and less than 50% stenosis in the left. Current Home Meds: (Last Updated 05/01 13:31) aspirin (aspirin 81 mg oral tablet) 81 mg PO Daily atenolol (atenolol 100 mg oral tablet) 100 mg PO bid betamethasone topical (betamethasone dipropionate 0.05% topical ointment) 1 appl topical bid to groin. chlorthalidone (chlorthalidone 25 mg oral tablet) 25 mg PO Daily clopidogrel (clopidogrel 75 mg oral tablet) 75 mg PO Daily cyanocobalamin (Vitamin B12) dorzolamide-timolol ophthalmic (dorzolamide-timolol 2.23%-0.68% ophthalmic solution) 1 drop both eyes bid doxazosin (doxazosin 2 mg oral tablet) 2 mg PO Daily dulaglutide (Trulicity Pen 1.5 mg/0.5 mL subcutaneous solution) folic acid gabapentin (gabapentin 100 mg oral capsule) 100 mg PO tid glipiZIDE (glipiZIDE 5 mg oral tablet) 10 mg PO bid isosorbide mononitrate (isosorbide mononitrate 120 mg oral tablet, extended release) 120 mg PO qAM IMDUR (isosorbide mononitrate) is a SUSTAINED RELEASE tablet typically dosed daily. Do not confuse with ISORDIL (isosorbide dinitrate) commonly dosed three times daily. Gino Krause 05/01 13:24 latanoprost ophthalmic (latanoprost 0.005% ophthalmic solution) 1 drop left eye qhs Store intact bottles under refrigeration. Once opened, the container may be stored at room temperature for 6 weeks. Gino Krause 05/01 13:24 lisinopril (lisinopril 20 mg oral tablet) 20 mg PO Daily meloxicam (meloxicam 15 mg oral tablet) 15 mg PO Daily metFORMIN (metFORMIN 1000 mg oral tablet) 1,000 mg PO bid multivitamin (One-A-Day Essentials) 1 tab PO Daily nitroglycerin (nitroglycerin 0.4 mg sublingual tablet) omega-3 polyunsaturated fatty acids (Fish Oil oral capsule) pantoprazole (pantoprazole 40 mg oral delayed release tablet) 40 mg PO Daily potassium chloride (potassium chloride 20 mEq oral tablet, extended release) 2 tabs po bid rosuvastatin (rosuvastatin 20 mg oral tablet) 20 mg PO qhs secukinumab (Cosentyx) 300 mg subQ [id number] traZODone (traZODone 150 mg oral tablet) Allergies and Sensitivities: No Known Medication Allergies Past Medical History: Problems: Carotid stenosis Hypertension Diabetes Skin lesion Coronary artery disease Hyperlipidemia Diabetic neuropathy Obstructive sleep apnea GERD Psoriasis Surgical history: Positive for tonsillectomy, appendectomy cardiac catheterization with coronary artery stent placement x2 Family history: Positive for diabetes and hypertension Social history: Patient is and lives with his . He is a prior smoker having smoked 1 pack/week for about 2 years and quit in 1972. He denies any significant alcohol use. He denies any illicit drug use. OBJECTIVE Vitals: Last Updated 05/01/22 13:36 Date Temp BP Location Pulse RR SpO2 Pain 05/01/22 0 05/01/22 140/64 Right Arm 05/01/22 142/64 Left Arm 68 94 Vital Signs are the last 3 documented. No Orthostatic Data Available Height and Weight: Last Updated 05/01/22 13:33 Date BMI Wt(kg) Wt(lb) Method Ht(cm) (ft-in) Method 05/01/22 134.1 295 Standing Scale Heights and Weights are the last 3 documented. Physical Exam Constitutional: In general patient is morbidly obese but otherwise healthy well-nourished well-developed elderly male no distress. He is alert and oriented without any focal neurological deficits. His head is normocephalic and atraumatic. His carotids do demonstrate bruits. His heart is regular, his lungs are decreased but clear throughout. His abdomen is soft and nontender with normoactive bowel sounds in all 4 quadrants. I am unable to appreciate any pulsatile mass. Brachial and radial pulses are +3. Femoral pulses are +3. Lower extremity distal pulses are +2. He has brisk capillary refill and no sign of distal ischemia. He does have +2 edema of the lower extremities. ASSESSMENT: _ PLAN: _ 1 ) _severe right ICA stenosis Patient appears to have over 95% stenosis of his right ICA by CTA. This is asymptomatic at this time, however, due to the severity of the stenosis we recommend that he undergo a right carotid endarterectomy procedure. The procedure risks benefits and alternatives were discussed with the patient and his by Dr. Collins. Patient expresses understanding and agreement to proceed. Patient is advised to call any other questions or concerns. This will be scheduled in the next few weeks at the patient's convenience. We will request cardiac clearance from Dr. Jerez. Thank you for letting us participate in the care of this patient. Signature Line Electronic Signature on File CC: Sreekanth Jerez MD [address] [facility] [address] * CC: Margaret Mahoney MD [facility] [address], [address] [place] [address] * Electronically Reviewed/Signed by: Keshia Lopez PA-C Author Signature Dt/Tm:05/01/2022 04:31 PM [facility] [place] [address], [address] [place] [address] Electronically Reviewed/Signed by: Albaro Collins MD Cosigner Signature Dt/Tm: 05/04/2022 08:43 AM Principal [employer]st [facility] [address], [address] [place] [address] LM Result Type: HVI Outpt Note Date of Service: May 01, 2022 16:19 EDT Authorization Status: Final Author or Import Date: MALAIKA Lopez, Keshia on May 01, 2022 16:31 EDT Verified By: MD Dennis, Albaro Oscar on May 04, 2022 08:43 EDT Encounter info: [id number], [facility] [id number], Clinic, 05/01/2022 - 05/01/2022 Admission Exam Per Admitting Provider Constitutional: In general patient is morbidly obese but otherwise healthy well- nourished well-developed elderly male no distress. He is alert and oriented without any focal neurological deficits. His head is normocephalic and atraumatic. His carotids do demonstrate bruits. His heart is regular, his lungs are decreased but clear throughout. His abdomen is soft and nontender with normoactive bowel sounds in all 4 quadrants. I am unable to appreciate any pulsatile mass. Brachial and radial pulses are +3. Femoral pulses are +3. Lower extremity distal pulses are +2. He has brisk capillary refill and no sign of distal ischemia. He does have +2 edema of the lower extremities. Principal Diagnosis 1. s/p R CEA 2. R ICA stenosis Discharge Exam Constitutional WD/WN, vitals as above + morbidly obese, healthy appearing, cooperative and comfortable; not in distress Neck trachea midline (R neck incision with small soft edema) Respiratory normal respiratory effort, lungs clear to auscultation Cardiovascular Rate/Rhythm: regular rate and regular rhythm Vessels: posterior tibial pulses present, dorsalis pedis pulses present and radial pulses present; + abnormal peripheral pulses Extremities: normal capillary refill Gastrointestinal (Abdomen) Inspection/Auscultation: abdomen normal to inspection and normal bowel sounds Percussion/Palpation: abdomen soft; abdomen nontender Musculoskeletal no cyanosis or clubbing, extremities motor strength 5/5 Skin no rashes, warm and dry + incision (R neck C/D/I, mild local edema tenderness ecchymosis) Neurologic CN's II-XI intact bilaterally, moves all extremities and awake; no focal motor deficits and not confused Speech / Cognition: normal speech Psychiatric A+Ox3, euthymic affect Discharge Data Allergies Allergy/AdvReac Type Severity Reaction Status Date / Time No Known Allergies Allergy Verified 05/30/22 06:01 Consultations 05/30/22 17:44 Consult Tail Dogger Routine Procedures Performed Operation Date: 05/10/22 07:30 <No data on this case meets the specified criteria> Operation Date: 05/30/22 08:00 Actual Procedures p Right Carotid Endarterectomy(Right) - Albaro Collins MD Ordered Studies 05/30/22 06:58 US vascular access [US guide vascular access] Stat Hospital Course (1) Status post carotid endarterectomy: Pt doing well POD #1 after R CEA. Plan is for D/C home today. Total Time Total Time Spent Total Time Spent (In Minutes): 0 Discharge Plan Discharge Items Patient Disposition: Home - Self-Care Reason For Visit: Right Internal Carotid Artery Stenosis Discharge Diagnosis: Right carotid stenosis with cerebrovascular accident Activity: Per Instructions section Non-emergency contact: Surgeon Call non-emergency contact if: your temperature is above 101.5, your wound has increased redness, your wound has increased drainage and your wound pain has increased Follow-up/Referrals: Margaret Mahoney MD [Primary Care Provider] - Diet: Carb Consistent or DM2 and Heart Healthy Addtl Attending Provider Instructions: SPECIAL CARE INSTRUCTIONS: Medications: * Continue to take Aspirin as directed. Incision Care: * You may shower, but do not rub incision. You may let the warm soapy water run over it. Be sure to dry the incision well after bathing. * Do not shave directly over the incision until it is healed. * DO NOT IMMERSE THE INCISION IN A TUB/POOL/etc. UNTIL HEALED. Restrictions: * Do not drive for at least one week or if you are still taking any narcotic pain medication. * Do not lift anything heavier than a gallon of milk for one week after going home. Possible Complications: * Numbness - It is normal to have some numbness around the incision. Numbness can extend beyond the incision to areas of the neck, ear and face. The numbness is due to bruising of nerves during the surgery and will gradually improve over a period of months. * Hoarseness/Difficulty Speaking and Swallowing - The bruising of nerves in the neck can also cause a hoarse voice, difficulty speaking or swallowing. This may improve over time, HOWEVER, if it continues for more than a few days please contact our office ([phone]). * Excessive Swelling - There will be some swelling immediately after surgery which usually resolves within one week. If you notice that the swelling is getting worse, notify your surgeon ([phone]). * Drainage/Bleeding - If there is any drainage or bleeding, it should be a very small amount (less than a teaspoon per day). If you have excessive bleeding or drainage from the incision, call your surgeon ([phone]) right away. ACTIVATION OF EMERGENCY MEDICAL SYSTEM: Call 911, immediately, if you experience any of the following: Warning Signs and Symptoms of Stroke: * Sudden numbness or weakness of the face, arm or leg, especially on one side of the body * Sudden confusion, trouble speaking or understanding * Sudden trouble seeing in one or both eyes * Sudden trouble walking, dizziness, loss of balance or coordination * Sudden severe headache with no cause Do not delay calling 911 if you experience any warning signs or symptoms of a stroke. Delay in seeking medical attention may affect what treatments can be given to you. Risk Factors for Stroke: You can reduce your chances of stroke by working with your medical provider to adopt a healthy lifestyle. Some specific ways to lower your chance of stroke are: * If you are a smoker, now is the time to stop smoking cigarettes * If you are diabetic, improve the control of your blood sugars * Avoid excessive amounts of alcohol * Control high blood pressure * Lose weight if you are overweight * Be sure to lead an active lifestyle * Eat a healthy diet low in salt, cholesterol and fat You should know about other risk factors for stroke that you are unable to control. These include: * Age 55 years or older * Male gender * Certain racial groups: , or / * Family History of Stroke, Mini stroke or Heart Attack * Sickle Cell Disease You will be receiving a call from the Vascular Surgery Nurse after you are discharged. FOLLOW UP VISIT: It is important for you to keep your follow up appointments with your medical provider. Keep any scheduled doctor appointments. Call [phone] to schedule a follow up appointment if one not already scheduled. Pending Studies at Discharge: No Stand-Alone Forms: My [facility], Smoking Cessation Medications and DC Order Prescriptions: New oxycodone-acetaminophen [Percocet] 5-325 mg tablet 1 tab PO Q8H PRN (Reason: pain) Qty: 10 0RF Continued latanoprost 0.005 % Drops 1 drp OPHTHALMIC (EYE) HS atenolol 100 mg Tablet 100 mg PO QAM meloxicam 15 mg Tablet 15 mg PO QAM lisinopril 20 mg Tablet 20 mg PO QAM clopidogrel 75 mg Tablet 75 mg PO QAM chlorthalidone 25 mg Tablet 25 mg PO QAM isosorbide mononitrate 120 mg Tablet Extended Release 24 Hr 120 mg PO QAM tamsulosin 0.4 mg Capsule 0.4 mg PO QAM pantoprazole 40 mg Tablet,Delayed Release (Dr/Ec) 40 mg PO QAM metformin 1,000 mg Tablet 1,000 mg PO BID glipizide 5 mg Tablet 10 mg PO BID doxazosin 2 mg Tablet 4 mg PO HS dorzolamide 2 % Drops 1 drp OPHTHALMIC (EYE) TID omega-3 fatty acids-vitamin E 1,000 mg Capsule 2 cap PO QAM rosuvastatin 20 mg Tablet 20 mg PO QAM gabapentin 100 mg Tablet 100 mg PO TID Centrum Silver Men 300-600-300 mcg Tablet 1 tab PO QAM potassium chloride 20 mEq Tablet Extended Release 40 meq PO BID aspirin 81 mg Capsule 81 mg PO QAM Trulicity 1.5 mg/0.5 mL Pen Injector 1.5 mg SUBCUT WK Rx Instructions: unsure of actual dose Cosentyx Pen 150 mg/mL Pen Injector 150 mg SUBCUT MONTHLY trazodone 150 mg tablet 150 mg PO HS Discharge Orders: Discharge Order (Routine); Ordered 05/31/22 Ordered By: Albaro Collins Admission Data Admit Date/Time: 05/30/22 08:17 Attending Provider: Albaro Collins Admit Provider: Albaro Collins Primary Care Provider: Margaret Mahoney Other Providers: Grey Connelly Other Interventions: Discharge Summary Assessment (RN) Last Done: 05/31/22 15:25
== END 2022-05-31 16:58 | disposition home or self-care (01) | DRG 38 ==
LOC: ASU 05:28 → 1E 08:17